=== PATIENT | female | born 1940 | race Caucasian/White ===

== ENCOUNTER 2017-06-15 17:51 | Emergency (ER) | payer OTHER, BC ==
[~2017-06-15] VITALS: Ht 162.6 cm; Wt 91.2 kg
[2017-06-15 18:06] VITALS: Ht 162.6 cm; Wt 91.2 kg
[2017-06-15 19:11] LABS: BASOPHIL % 0.6 % (0-2)
[2017-06-15 19:19] LABS: CALCIUM 8.5 mg/dL (8.5-10.1); CARBON DIOXIDE 26.9 mmol/L (21-32); CHLORIDE SERUM 105 mmol/L (98-107); CREATININE SERUM 0.9 mg/dL (0.6-1.0); GLUCOSE SERUM 113 mg/dL (74-106); POTASSIUM SERUM 3.4 mmol/L (3.5-5.1); SODIUM SERUM 140 mmol/L (136-145)
[2017-06-15 19:24] LABS: ALKALINE PHOSPHATASE 224 U/L (46-116); ALT/SGPT 46 U/L (14-59); AST/SGOT 69 U/L (15-37); BILIRUBIN TOTAL 0.5 mg/dL (0.20-1.00); TOTAL PROTEIN, SERUM 6.7 g/dL (6.4-8.2)
[2017-06-15 19:25] LABS: ALBUMIN 2.7 g/dL (3.4-5.0); PLATELET COUNT 173 x10^3mcL (130-400); RED CELL DISTRIBUTION WIDTH 14.1 % (11.5-14.5)
[2017-06-15 20:14] VITALS: BP 151/73
== END 2017-06-15 20:53 | disposition home or self-care (01) ==
LOC: ED 17:51
PROVIDERS: Emergency Medicine
DX: S42.202A Unspecified fracture of upper end of left humerus, initial encounter for closed fracture (principal); W19.XXXA Unspecified fall, initial encounter; Y93.89 Activity, other specified; Y92.89 Other specified places as the place of occurrence of the external cause; Y99.8 Other external cause status
CPT/HCPCS: J3010; Q0092